=== PATIENT | female | born 1930 | race Caucasian/White ===

== ENCOUNTER 2017-11-10 13:26 | Emergency (ER) | payer OTHER ==
[2017-11-10 14:38] LABS: Absolute Lymphocytes (CBC) 1.4 K/uL (0.7-4.9); Basophils % 0.7 % (0-1.3); Eosinophils % 2.5 % (0-4.4); Hematocrit 35.6 % (36.0-45.0); Lymphocytes % 14.4 % (15.3-44.8); MCH 32.1 pg (27.0-35.0); MCV 96.6 fL (80-100); MPV 8.4 fL (7.6-11.3); Monocytes % 10.2 % (3.3-12.3); RBC Red Blood Cell Count 3.69 M/uL (3.86-4.86)
[2017-11-10] MEDS ORDERED: LIDOCAINE 1% MPF 5 ML VIAL ONE (14:55)
[2017-11-10] MEDS ORDERED: BUPIVACAINE 0.5% PF 10 ML VIAL ONE (14:55)
[2017-11-10 14:56] LABS: Potassium 3.8 mmol/L (3.5-5.1)
--- NOTE | 2017-11-10 15:44 | EDPHYS ---
Physician Documentation [facility] Name: Alexa Clark Age: 87 yrs Sex: Female : 1930 Arrival Date: 11/10/2017 Time: 13:29 Bed 28 Private MD: Tejas Tobin V ED Physician Brandon Burroughs HPI: 11/10 14:06 This 87 yrs old Female presents to ER via Ambulatory with complaints of jmm Abscess. 14:06 The patient presents with an abscess of the buttocks. Onset: The symptoms/episode jmm began/occurred gradually, 1 week(s) ago. Possible cause(s): unknown. Associated signs and symptoms: Pertinent positives: erythema, Pertinent negatives:. This is an 87 year old female with a history of DM, HLP, HTN that presents to the ED with right buttock pain. Patient states the swelling has increased over the past week. Denies fever. . Historical: - Allergies: 13:40 No Known Allergies; hj - Home Meds: 13:40 levothyroxine 88 mcg tab 1 tab once daily [Active]; atorvastatin 10 mg oral tab 1 tab hj once daily [Active]; valsartan 320 mg oral tab 1 tab once daily [Active]; metformin 500 mg Oral tab 1 tab 2 times per day [Active]; omeprazole 20 mg Oral cpDR 1 cap once daily [Active]; aspirin 81 mg Oral chew 1 tab once daily [Active]; - PMHx: 13:40 Hypertension; Hyperlipidemia; Diabetes - NIDDM; hj - PSHx: 13:40 Knee surgery; R shoulder; Hernia repair; Bladder suspension; hj - Immunization history:: Adult Immunizations up to date. - Social history:: Smoking status: Patient/guardian denies using tobacco, Patient/guardian denies using alcohol. - Ebola Screening: : Patient negative for fever greater than or equal to 101.5 degrees Fahrenheit, and additional compatible Ebola Virus Disease symptoms Patient denies exposure to infectious person Patient denies travel to an Ebola-affected area in the 21 days before illness onset. ROS: 14:08 Constitutional: Negative for fever, chills, and weight loss. jmm 14:08 MS/extremity: Positive for pain. 14:08 Skin: Positive for erythema. 14:08 Neuro: Negative for weakness. 14:08 All other systems are negative. Exam: 14:08 Head/Face: atraumatic. [facility] 14:08 Constitutional: The patient appears in no acute distress, alert, awake. 14:08 Cardiovascular: Rate: normal. 14:08 Respiratory: the patient does not display signs of respiratory distress, Respirations: normal. 14:08 Musculoskeletal/extremity: erythema noted to the right buttock. 14:08 Skin: erythema and induration noted to the right buttock, the area is tender to palpation. 14:08 Neuro: Orientation: is normal, Mentation: is normal, Memory: is normal. 14:08 Psych: Behavior/mood is pleasant, cooperative. Vital Signs: 13:41 Pulse 102; Resp 18; Temp 98.1(O); Pulse Ox 96% on R/A; Weight 64.86 kg; Height 5 ft. 0 hj in. (152.40 cm); Pain 9/10; 15:48 BP 110 / 90; Pulse 87; Resp 18; Pulse Ox 100% on R/A; tl3 13:41 Body Mass Index 27.93 (64.86 kg, 152.40 cm) Procedures: 15:30 I \T\ D: Incision and drainage was performed for an abscess of the right buttocks Prepped [facility] with Betadine, Anesthetized with 10 ml's 1% Lidocaine. Incised with #11 blade. Drained moderate amount purulent fluid. Loculations removed. Abscess cavity explored. Packed with iodoform gauze, Dressing: sterile 4x4 gauze, the patient tolerated the procedure well. MDM: 14:05 Patient medically screened. [facility] 15:42 Data reviewed: vital signs, nurses notes, lab test result(s). Counseling: I had a [facility] detailed discussion with the patient and/or guardian regarding: the historical points, exam findings, and any diagnostic results supporting the discharge/admit diagnosis, lab results, the need for outpatient follow up, to return to the emergency department if symptoms worsen or persist or if there are any questions or concerns that arise at home. 11/10 14:06 Order name: CBC with Diff; Complete Time: 14:38 [facility] 11/10 14:06 Order name: BMP; Complete Time: 15:05 [facility] 11/10 14:06 Order name: Saline Lock; Complete Time: 14:30 [facility] Administered Medications: 15:11 Drug: Marcaine (0.5 %) 10 ml {Note: Per Ke.} Volume: 10 ml; Route: Infiltration; tl3 15:12 Follow up: Response: No adverse reaction; Pain is decreased tl3 15:11 Drug: Lidocaine (1 %) 20 ml {Note: per Ke.} Volume: 20 ml; Route: Infiltration; tl3 15:12 Follow up: Response: No adverse reaction; Pain is decreased tl3 Disposition: 21:13 Co-signature as Attending Physician, Brandon Burroughs MD. Disposition: 11/10/17 15:43 Discharged to Home. Impression: Cutaneous abscess of buttock. - Condition is Stable. - Discharge Instructions: Abscess. - Prescriptions for Augmentin 875- 125 mg Oral Tablet - take 1 tablet by ORAL route every 12 hours for 10 days; 20 tablet. Bactrim DS 800- 160 mg Oral Tablet - take 1 tablet by ORAL route every 12 hours for 10 days; 20 tablet. - Medication Reconciliation Form, Thank You Letter, Antibiotic Education, Prescription Opioid Use form. - Follow up: Reji Murphy MD; When: 2 - 3 days; Reason: Continuance of care. Signatures: Dispatcher [employer] EDMS Ke Daly PA PA jmm Joaquin, Henry, RN RN hj Starr, Gregory, MD MD Santa Guerrero RN RN tl3 Corrections: (The following items were deleted from the chart) 13:44 13:40 Home Meds: BP meds; [facility] 13:44 13:40 Home Meds: diabetes meds; [facility] 13:44 13:40 Home Meds: thyroidmeds; [facility] 16:01 15:43 11/10/2017 15:43 Discharged to Home. Impression: Cutaneous abscess of buttock. tl3 Condition is Stable. Forms are Medication Reconciliation Form, Thank You Letter, Antibiotic Education, Prescription Opioid Use. Follow up: Reji Murphy; When: 2 - 3 days; Reason: Continuance of care. [facility] 18:26 18:25 I \T\ D: Incision and drainage was performed for an abscess of the right buttocks jmm Prepped with Betadine, Anesthetized with 10 ml's 1% Lidocaine. Incised with #11 blade. Drained moderate amount purulent fluid. Loculations removed. Abscess cavity explored. Packed with iodoform gauze, Dressing: sterile 4x4 gauze, the patient tolerated the procedure well, jmm
--- NOTE | 2017-11-10 15:44 | ER ---
Nurse's Notes [facility] Name: Alexa Clark Age: 87 yrs Sex: Female : 1930 Arrival Date: 11/10/2017 Time: 13:29 Bed 28 Private MD: Teajs Tobin V Diagnosis: Cutaneous abscess of buttock Presentation: 11/10 13:35 Presenting complaint: Patient states: i have an abscess on my R hip that's been here since Friday, it started like a pea sized and its growing bigger; its red and warm and hard and very painful; 8/10 pain; denies fever and chills; denies nausea and vomiting;. Transition of care: patient was not received from another setting of care. Onset of symptoms was November 10, 2017. Risk Assessment: Do you want to hurt yourself or someone else? Patient reports no desire to harm self or others. Initial Sepsis Screen: Does the patient meet any 2 criteria? No. Patient's initial sepsis screen is negative. Does the patient have a suspected source of infection? Yes: Skin breakdown/wound. Care prior to arrival: None. 13:35 Method Of Arrival: Ambulatory 13:35 Acuity: AMANDA 4 hj Triage Assessment: 13:40 General: Appears in no apparent distress. uncomfortable, Behavior is calm, cooperative, hj appropriate for age. Pain: Complains of pain in right hip. Historical: - Allergies: 13:40 No Known Allergies; hj - Home Meds: 13:40 levothyroxine 88 mcg tab 1 tab once daily [Active]; atorvastatin 10 mg oral tab 1 tab hj once daily [Active]; valsartan 320 mg oral tab 1 tab once daily [Active]; metformin 500 mg Oral tab 1 tab 2 times per day [Active]; omeprazole 20 mg Oral cpDR 1 cap once daily [Active]; aspirin 81 mg Oral chew 1 tab once daily [Active]; - PMHx: 13:40 Hypertension; Hyperlipidemia; Diabetes - NIDDM; hj - PSHx: 13:40 Knee surgery; R shoulder; Hernia repair; Bladder suspension; hj - Immunization history:: Adult Immunizations up to date. - Social history:: Smoking status: Patient/guardian denies using tobacco, Patient/guardian denies using alcohol. - Ebola Screening: : Patient negative for fever greater than or equal to 101.5 degrees Fahrenheit, and additional compatible Ebola Virus Disease symptoms Patient denies exposure to infectious person Patient denies travel to an Ebola-affected area in the 21 days before illness onset. Screenin:40 Abuse screen: Denies threats or abuse. Denies injuries from another. Nutritional hj screening: No deficits noted. Tuberculosis screening: No symptoms or risk factors identified. Fall Risk None identified. Assessment: 13:58 General: Appears in no apparent distress. comfortable, Behavior is calm, cooperative, aj appropriate for age. Neuro: Level of Consciousness is awake, alert, obeys commands, Oriented to person, place, time, situation, Appropriate for age. Respiratory: Airway is patent Respiratory effort is even, unlabored, Respiratory pattern is regular, symmetrical. Derm: Skin is intact, is healthy with good turgor, Skin is pink, warm \T\ dry. normal, Abscess located on right lower back is quarter sized, has no drainage, is hot to touch, is red, is raised. 15:10 Reassessment: Patient and/or family updated on plan of care and expected duration. Pain tl3 level reassessed. Patient is alert, oriented x 3, equal unlabored respirations, skin warm/dry/pink. Ke at bedside for administration of lidocaine and Marcaine to abscess site. 15:48 Reassessment: Patient appears in no apparent distress at this time. No changes from tl3 previously documented assessment. Patient and/or family updated on plan of care and expected duration. Pain level reassessed. Patient is alert, oriented x 3, equal unlabored respirations, skin warm/dry/pink. pt tolerated I\T\D well, wound dressed with gauze and foam tape. Vital Signs: 13:41 Pulse 102; Resp 18; Temp 98.1(O); Pulse Ox 96% on R/A; Weight 64.86 kg; Height 5 ft. 0 hj in. (152.40 cm); Pain 9/10; 15:48 BP 110 / 90; Pulse 87; Resp 18; Pulse Ox 100% on R/A; tl3 13:41 Body Mass Index 27.93 (64.86 kg, 152.40 cm) ED Course: 13:29 Patient arrived in ED. rg4 13:29 Tejas Tobin MD is Private Physician. rg4 13:37 Triage completed. hj 13:41 Arm band placed on left wrist. hj 13:41 Patient has correct armband on for positive identification. Bed in low position. Call light in reach. Side rails up X 1. 13:47 Ke Daly PA is PHCP. [facility] 13:47 Brandon Burroughs MD is Attending Physician. [facility] 13:54 Nguyen Nichole, RN is Primary Nurse. aj 14:29 Inserted saline lock: 20 gauge in left antecubital area, using aseptic technique. Blood aj collected. 14:30 Initial lab(s) drawn, by me, sent to lab. aj 15:43 Reji Murphy MD is Referral Physician. [facility] 15:48 Assist provider with I \T\ D: of an abscess on Wound packed. Dressing with 4X4s, tape tl3 Patient tolerated well. IV discontinued, intact, bleeding controlled, No redness/swelling at site. Pressure dressing applied. Administered Medications: 15:11 Drug: Marcaine (0.5 %) 10 ml {Note: Per Ke.} Volume: 10 ml; Route: Infiltration; tl3 15:12 Follow up: Response: No adverse reaction; Pain is decreased tl3 15:11 Drug: Lidocaine (1 %) 20 ml {Note: per Ke.} Volume: 20 ml; Route: Infiltration; tl3 15:12 Follow up: Response: No adverse reaction; Pain is decreased tl3 Outcome: 15:43 Discharge ordered by MD. [facility] 15:48 Discharged to home ambulatory. tl3 15:48 Condition: stable 15:48 Discharge instructions given to patient, family, Instructed on discharge instructions, follow up and referral plans. medication usage, Demonstrated understanding of instructions, follow-up care, medications, wound care, Prescriptions given X 2. 16:01 Patient left the ED. tl3 Signatures: Nguyen Nichole, RN Ke Arredondo PA PA jmm Joaquin, Henry, RN RN hj Garcia, Rubi rg4 Santa Guerrero RN RN tl3 Corrections: (The following items were deleted from the chart) 13:44 13:40 Home Meds: BP meds; hj hj 13:44 13:40 Home Meds: diabetes meds; hj hj 13:44 13:40 Home Meds: thyroidmeds; hj hj
== END 2017-11-10 16:01 | disposition home or self-care (01) ==
LOC: ER 13:26
PROC: 0J990ZZ Drainage of Buttock Subcutaneous Tissue and Fascia, Open Approach (ICD-10-PCS; principal; 2017-11-10)
DX: L02.31 Cutaneous abscess of buttock (principal); I10 Essential (primary) hypertension; E11.9 Type 2 diabetes mellitus without complications; E78.5 Hyperlipidemia, unspecified; Z79.82 Long term (current) use of aspirin
CPT/HCPCS: 36415; 80048; 85025; 99284